=== PATIENT | male | born 1990 | race Caucasian/White ===

== ENCOUNTER 2018-08-20 08:38 | Emergency (ER) | payer OTHER ==
[~2018-08-20] VITALS: Ht 177.8 cm; Wt 79.4 kg
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
[2018-08-20] MEDS ORDERED: Ketorolac 30mg Inj IV ONE (09:15)
[2018-08-20] MEDS ORDERED: Vancomycin 1 GM in NS 275 ML IV ONE (09:15)
[2018-08-20] MEDS ORDERED: Bacitracin Oint UD TOPIC ONE (09:15)
[2018-08-20 09:28] VITALS: BP 116/65
[2018-08-20 09:56] LABS: EOSINOPHILS % (AUTO) 2.2 % (0.0-3.0); HEMOGLOBIN 15.8 G/DL (14.2-18.0); LYMPHOCYTES % (AUTO) 26.4 % (20.0-45.0); MONOCYTES % (AUTO) 12.7 % (1.0-10.0); NEUTROPHILS % (AUTO) 56.7 % (45.0-75.0); PLATELET COUNT 181 K/UL (150-450); RED CELL DISTRIBUTION WIDTH 9.9 % (11.6-14.8); WHITE BLOOD COUNT 6.8 K/UL (4.8-10.8)
[2018-08-20 10:15] LABS: ANION GAP 8 mmol/L (5-15); BLOOD UREA NITROGEN 9 mg/dL (7-18); CALCIUM 8.9 MG/DL (8.5-10.1); CARBON DIOXIDE 30 MMOL/L (21-32); CHLORIDE 96 MMOL/L (98-107); POTASSIUM 3.7 MMOL/L (3.5-5.1); SODIUM 134 MMOL/L (136-145)
[2018-08-20 10:26] LABS: HEMATOCRIT 47.4 % (42.0-52.0); MEAN CORPUSCULAR VOLUME 93 FL (80-99)
[2018-08-20 10:36] LABS: ALANINE AMINOTRANSFERASE 85 U/L (12-78); ALBUMIN 3.7 G/DL (3.4-5.0); ALBUMIN/GLOBULIN RATIO 0.8 (1.0-2.7); ALKALINE PHOSPHATASE 102 U/L (46-116); ASPARTATE AMINO TRANSFERASE 33 U/L (15-37); BILIRUBIN,TOTAL 1.1 MG/DL (0.2-1.0); CREATINE KINASE 273 U/L (26-308)
[2018-08-20 10:47] LABS: BILIRUBIN,DIRECT 0.3 MG/DL (0.0-0.3)
[2018-08-20 12:00] VITALS: BP 119/72
[2018-08-20] MEDS ORDERED: BACITRACIN15 GM TOPIC (13:16)
[2018-08-20] MEDS ORDERED: IBUPROFEN600 MG ORAL (13:16)
[2018-08-20] MEDS ORDERED: CEPHALEXIN500 MG ORAL (13:16)
[2018-08-20] MEDS ORDERED: BACTRIM DS TAB1 EAC1 ORAL (13:16)
[2018-08-20 13:18] VITALS: BP 119/72
== END 2018-08-20 13:23 | disposition home or self-care (01) ==
LOC: EMR 09:05
DX: L03.114 Cellulitis of left upper limb (principal); M25.532 Pain in left wrist; F41.8 Other specified anxiety disorders; F19.10 Other psychoactive substance abuse, uncomplicated; Z86.19 Personal history of other infectious and parasitic diseases
CPT/HCPCS: 36415; 80053; 82248; 82550; 83605; 84484; 85025; 85610; 85651; 85730; 86140; 96374; 96375; 99284; J1885; J3370; J7050